=== PATIENT | male | born 1955 | race Caucasian/White ===

== ENCOUNTER 2023-09-17 13:55 | Outpatient (CLI) | payer MEDICARE, BC ==
[2023-09-17 15:51] LABS: #Eosinphils 0.2 10x3/uL (0.0-0.5); #Monocytes 0.5 10x3/uL (0.0-1.1); #Neutrophils 3.1 10x3/uL (1.5-8.4); %Basophils 0.8 % (0.0-2.0); %Eosinophils 2.9 % (0.0-6.0); %Lymphocytes 27.2 % (18.0-47.0); %Neutrophils 59.7 % (40.0-75.0); Hematocrit 39.3 % (38.8-50.0); Hemoglobin 14.2 g/dL (13.5-17.5); Mean Corpuscular HGB CONC 36.1 g/dL (32.0-36.0); Mean Corpuscular Hemoglobin 33.3 pg (27.0-33.0); Platelet Count 170 10x3/uL (150-450); RBC Distribution Width 12.3 % (11.5-14.5); Red Blood Cell (RBC) Count 4.27 10x6/uL (4.32-5.72); White Blood Cell (WBC) Count 5.2 10x3/uL (3.5-10.5)
[2023-09-17 16:06] LABS: Anion Gap 16 mmol/L (10-20); BUN (Urea Nitrogen) 15 mg/dL (8.4-25.7); Calc. Creatinine Clearance 0 mL/min (70-130); Calcium 9.5 mg/dL (7.8-10.44); Carbon Dioxide 25 mmol/L (23-31); Chloride 102 mmol/L (98-107); Estimated GFR 55; Glucose 105 mg/dL (80-115); Potassium 3.9 mmol/L (3.5-5.1); Sodium 139 mmol/L (136-145)
== END 2023-09-17 13:56 | disposition home or self-care (01) ==
LOC: LABBT 13:55
PROVIDERS: ATTEND Specialist
DX: Z01.818 Encounter for other preprocedural examination (principal); K42.9 Umbilical hernia without obstruction or gangrene; K40.90 Unilateral inguinal hernia, without obstruction or gangrene, not specified as recurrent
CPT/HCPCS: 71046; 80048; 85025; 93005; 93010

== ENCOUNTER 2023-09-20 07:28 | Day surgery (SDC) | payer MEDICARE, BC ==
[2023-09-17 14:58] VITALS: BMI 27.3
[2023-09-20] MEDS ORDERED: Acetaminophen 500 MG TAB ONE (07:50)
[2023-09-20] MEDS ORDERED: Ketorolac Tromethamine 30 MG/ML VIAL ONE (07:59)
[2023-09-20] MEDS ORDERED: Rocuronium Bromide 10 MG/ML (10ML VIAL) ONE ×2 (08:31→10:37)
[2023-09-20] MEDS ORDERED: PROPOFOL 20 ML ONE (08:31)
[2023-09-20] MEDS ORDERED: fentaNYL PF 100 MCG/2 ML SYRINGE ONE ×2 (08:31→09:40)
[2023-09-20] MEDS ORDERED: Lidocaine 1% PF 5 ML VIAL ONE ×2 (08:31→10:37)
[2023-09-20] MEDS ORDERED: EPINEPHrine 1 MG/ML VIAL ONE (08:39)
[2023-09-20] MEDS ORDERED: Bupivacaine 0.25% HCL 30 ML VIAL ONE (08:40)
[2023-09-20] MEDS ORDERED: Ondansetron PF 4 MG/2 ML Vial ONE ×3 (09:21→11:46)
[2023-09-20] MEDS ORDERED: SUGAMMADEX SODIUM 200 MG/2 ML VIAL ONE ×2 (09:28→11:47)
[2023-09-20] MEDS ORDERED: Tamsulosin HCl 0.4 MG CAP ONE (09:51)
[2023-09-20] MEDS ORDERED: Sodium Chloride 0.9% 100 ML ONE (10:22)
[2023-09-20] MEDS ORDERED: CEFAZOLIN 2 GM VIAL ONE (10:22)
[2023-09-20] MEDS ORDERED: PROPOFOL 200 MG/20 ML VIAL ONE (10:37)
[2023-09-20] MEDS ORDERED: PHENYLEPHRINE-NS 100 MCG/ML 10 ML SYRINGE ONE ×2 (10:37→11:08)
[2023-09-20] MEDS ORDERED: Dexamethasone 20 MG/5 ML VIAL ONE (10:37)
== END 2023-09-20 14:03 | disposition home or self-care (01) ==
LOC: SDC 07:28
PROVIDERS: ATTEND Specialist
PROC: 0YQ54ZZ Repair Right Inguinal Region, Percutaneous Endoscopic Approach (ICD-10-PCS; principal; 2023-09-20)
PROC: 0WQF4ZZ Repair Abdominal Wall, Percutaneous Endoscopic Approach (ICD-10-PCS; 2023-09-20)
DX: K40.90 Unilateral inguinal hernia, without obstruction or gangrene, not specified as recurrent (principal); K42.9 Umbilical hernia without obstruction or gangrene; I10 Essential (primary) hypertension; E78.5 Hyperlipidemia, unspecified; K66.0 Peritoneal adhesions (postprocedural) (postinfection); Z79.899 Other long term (current) drug therapy
CPT/HCPCS: 49591; 49650; A4314; C1781; J0171; J1100; J1885; J2405; J2704; J3490; S0020